=== PATIENT | female | born 1970 | race Caucasian/White ===

== ENCOUNTER → 2016-08-10 | Outpatient (CLI) | payer BC ==
[2016-08-10 14:27] LABS: ASPARTATE AMINO TRANSFERASE 47 IU/L (8-39); BILIRUBIN,TOTAL 0.7 mg/dL (0.3-1.2); BLOOD UREA NITROGEN 14 mg/dL (7-22); CALCIUM 8.4 mg/dL (8.7-10.7); CHLORIDE 101 meq/L (98-112); CREATININE 0.7 mg/dL (0.50-1.20); EST GLOMERULAR FILTRATION > 60 (>60 ml/min/1.73m(2)); GLUCOSE 176 mg/dL (78-110); HDL CHOLESTEROL 54 mg/dL (40-150); POTASSIUM 4.1 meq/L (3.8-5.2); SODIUM 135 meq/L (135-145); TRIGLYCERIDES 182 mg/dL (44-200)
[2016-08-10 14:29] LABS: HEMOGLOBIN A1C 7.77 % (4.2-6.0); MEAN BLOOD GLUCOSE (CALC) 172.741 mg/dL
[2016-08-10 14:35] LABS: CREATININE, URINE 176.5 MG/DL (15-500)
== END ==
LOC: LAB 13:44
PROVIDERS: ATTEND Nurse Practitioner Family
DX: E11.9 Type 2 diabetes mellitus without complications (principal); E78.5 Hyperlipidemia, unspecified; I10 Essential (primary) hypertension
CPT/HCPCS: 36415; 80048; 82043; 82247; 82465; 82550; 82977; 83036; 83718; 84075; 84450; 84460; 84478

== ENCOUNTER 2016-08-20 11:42 | Emergency (ER) | payer BC ==
[2016-08-20] MEDS ORDERED: NORMAL SALINE 10 ML SYRINGE FLUSH IVP PRN ×2 (11:51→11:52)
[2016-08-20] MEDS ORDERED: ONDANSETRON 4 MG/2 ML VIAL IVP ONE (11:52)
[2016-08-20] MEDS ORDERED: Sodium Chloride 0.9% 1,000 ML PRIMARY IV ONE (11:53)
[2016-08-20] MEDS ORDERED: ONDANSETRON 4 MG/2 ML VIAL ONE (11:55)
--- NOTE | 2016-08-20 11:57 | PDOC ---
Abdomen/Flank HPI - General Chief Complaint: Abdomen Pain Stated Complaint: Abdominal Pain Date Seen by Provider: 08/20/16 Time Seen by Provider: 11:54 Source: POSITIVE: Patient Nurse's Notes Reviewed & Considered: Yes - History of Present Illness Initial Comments: Patient is a 46-year-old male who presents to the emergency department with abdominal pain and vomiting. Her abdominal pain appears to be intermittent over the last month. Mostly in the right upper quadrant. No exacerbating or relieving factors. Mild to moderate overall severity and achy in nature. The patient reports that today she's been vomiting. She has had difficulty in tolerating oral intake. patient has had small amount of diarrhea as well. - Patient Home Medications Home Medications: Home Medications Multivitamins with Iron [Chewable-Eric with Iron] 1 each PO QD tab 12/14/14 Docusate Sodium [Colace] 100 mg PO BID PRN #60 cap 11/27/15 Ibuprofen [Motrin] 800 mg PO Q8H PRN #30 tab 11/27/15 Triamcinolone Acetonide 1 applic TOPICAL BID PRN #30 gm 12/12/15 Estrogens, Conj Vaginal Cream [Premarin Vaginal Cream] 0.5 gm TOPICAL DAILY #1 tube 01/07/16 Estrogens,Conjugated [Premarin] 0.9 mg PO DAILY #30 tab 01/07/16 Calcium Carbonate/Vitamin D3 [Calcium 500-Vit D3 400 Tablet] 1 tab PO BID tab 08/11/16 Dapagliflozin Propanediol [Farxiga] 1 tab PO QD #30 tab 08/11/16 Fluoxetine HCl 1 tab PO QD #30 tab 08/11/16 Lisinopril 1 tab PO QD #30 tab 08/11/16 Magnesium 1 tab PO QD tab 08/11/16 Pantoprazole Sodium 1 tab PO DAILY #30 tab 08/11/16 Potassium 1 tab PO QD tab 08/11/16 Sitagliptin Phosphate [Januvia] 1 tab PO DAILY #30 tab 08/11/16 Ondansetron [Ondansetron Odt] 4 mg PO Q8H PRN PRN #12 tab.rapdis 08/20/16 - Patient Allergies Allergies/Adverse Reactions: Allergies Allergy/AdvReac Type Severity Reaction Status Date / Time oxycodone HCl [From Percocet] Allergy Severe SHORTNESS Verified 08/20/16 12:11 OF BREATH codeine Allergy HALLUCINATI Verified 08/20/16 12:11 ONS venom-honey bee Allergy Anaphylaxis Verified 08/20/16 12:11 [bee venom (honey bee)] Past Medical History - heen HEENT History: Denies History Additional HEENT History: TONSILLECTOMY Cardiovascular History: Hypertension Additional Cardiovasular History: NORMAL ECHO AND STRESS TEST Respiratory History: Denies History Gastrointestinal History: GERD, Gallbladder Disease, Hiatal Hernia Genitourinary History: Kidney Stones Additional Genitourinary History: BEEN 20 YEARS AGO Endocrine History: Type 2 Diabetes (diet) Musculoskeletal History: Denies History Prosthesis or Implant: No Neurological History: Denies History Blood Disorders: Denies History Psychiatric History: Denies History History of Sexually Transmitted Diseases: No Cancer History: Denies History History of MDRO: No History of Other Communicable Diseases: No Alcohol Use: Rarely Substance Use Type: None Previous Surgical History: Yes Type / Date of Surgery: EGD/ LITHOTRIPSY, ALSO STENTS, ETC/ LEFT ANKLE MANIPULATION/ TONSILLECTOMY/ TUBAL /SEAN Anesthesia Reactions: No (PONV) Malignant Hyperthermia: No Significant Family History: No pertinent family hx ROS - Limitations ROS Limitations: No Limitations Constitution: REPORTS: Denies Symptoms Cardiovascular: REPORTS: Denies Cardiac Symptoms Respiratory: REPORTS: Denies Resp Symptoms Neurological: REPORTS: Denies Neuro Symptoms Gastrointestinal: REPORTS: Abdominal Pain, Nausea, Vomitting, Diarrhea Endocrine: REPORTS: Denies Symptoms Musculoskeletal: REPORTS: Denies MS Symptoms Genitourinary: REPORTS: Denies Symptoms Eyes: REPORTS: Denies Symptoms ENT: REPORTS: Denies Symptoms Skin: REPORTS: Denies Skin Symptoms Lympathic: REPORTS: Denies Lympathic Symptoms Immunologic: POSITIVE: Denies Symptoms Psychiatric: POSITIVE: Denies Psych Symptoms Abdominal/Flank Pain PE - General Appearance General Appearance: POSITIVE: Alert, Cooperative, Other (Vomiting) - HEENT HEENT: POSITIVE: Head Inspection Nml, Other (Slightly dry mucous membranes) - Neck Neck: POSITIVE: Normal Inspection - Respiratory Respiratory: POSITIVE: No Respiratory Distress - Cardiovascular Cardiovascular: POSITIVE: Regular Rate and Rhythm, Heart Sounds Normal, Equal Pulses - Chest Chest: POSITIVE: Non Tender - Abdomen Additional Abdominal Details: Minimal tenderness in the right upper quadrant. No rebound or guarding. Normal bowel sounds. - Back Back: POSITIVE: Normal Inspection - Skin Skin: POSITIVE: Intact, Warm, Diaphoresis - Extremities Extremity: Non-Tender: (LLE), (RLE), Normal ROM: (RLE), (LLE), Normal Inspection : (LLE), (RLE) - Neurological Neurological: POSITIVE: Oriented X3 Abdomen Progress - Results Reviewed by me Lab Results:: Laboratory Results 08/20/16 Range/Units 12:09 WBC 15.15 H (4.8-10.8) 10^3/uL RBC 5.23 (4.20-5.40) 10^6/uL Hgb 14.0 (12.0-16.0) g/dL Hct 42.4 (37.0-47.0) % MCV 81.1 (81-99) FL MCH 26.8 L (27-31) PG MCHC 33.0 (33-37) g/dL RDW Std Deviation 43.0 (39-50) fL RDW Coeff of Harsha 14.7 H (11.5-14.5) % Plt Count 304 (140-350) 10*3/uL MPV 10.2 (7.4-12.2) FL Immature Gran % (Auto) 0.2 (0-5) % Neut % (Auto) 80.6 H (50-80) % Lymph % (Auto) 11.2 (10-50) % Tama % (Auto) 6.1 (5-15) % Eos % (Auto) 1.6 (0-8) % Baso % (Auto) 0.3 (0-1) % Immature Gran # (Auto) 0.03 10*3/UL Neut # (Auto) 12.21 10*3/UL Lymph # (Auto) 1.70 10*3/uL Tama # (Auto) 0.92 H (0.3-0.8) 10*3/UL Eos # (Auto) 0.24 10*3/UL Baso # (Auto) 0.05 10*3/UL WBC Morphology Comment Normal morphology (NORM) Plt Morphology Comment Normal morphology (NORM) RBC Morph Comment Normal morphology (NORM) Sodium 139 (135-145) meq/L Potassium 4.1 (3.8-5.2) meq/L Chloride 102 (98-112) meq/L Carbon Dioxide 21 L (23-33) meq/L Anion Gap 16 (5-20) BUN 12 (7-22) mg/dL Creatinine 0.8 (0.50-1.20) mg/dL Estimated GFR > 60 (>60 ml/min/1.73m(2)) BUN/Creatinine Ratio 15.00 (6-20) Glucose 203 H (78-110) mg/dL Calculated Osmolality 293.0 H (267-292) mOsm/kg Calcium 9.6 (8.7-10.7) mg/dL Total Bilirubin 0.8 (0.3-1.2) mg/dL AST 59 H (8-39) IU/L ALT 50 (9-52) IU/L Alkaline Phosphatase 111 (38-126) IU/L Total Protein 7.9 (6.1-8.0) g/dL Albumin 4.6 (3.5-4.8) g/dL Globulin 3.3 (2.50-4.10) g/dL Albumin/Globulin Ratio 1.30 (1.3-2.0) mg/g Lipase 112 (23-300) IU/L - Patient's Progress Re-examine Time: 12:35 Re-Examine Comment: Feeling better after zofran Status: POSITIVE: Improved MDM / ED Course: Caity is a 46-year-old female who presents to the emergency department with abdominal pain, nausea, vomiting, diarrhea. Vital signs are notable for slight tachycardia. Examination demonstrates overall well appearing female with reassuring abdominal pain and his vomiting. Differential diagnosis includes but is not limited to gastroenteritis, electrolyte abnormality, biliary disease , pancreatitis, hepatitis. Laboratory studies did note a leukocytosis. No significant left shift and there was a neutrophil predominance. Lipase was negative making pancreatitis less likely. Patient is status post cholecystectomy so there is no indication for a biliary ultrasound. Chemistry panel with very mild elevation in liver enzymes though not consistent with an acute hepatitis pattern. Given the patient's improvement with normal saline bolus and Zofran suspect this is most likely a gastroenteritis recommended continued Zofran at home, oral fluids, follow-up with primary care provider and return to the emergency department for any worsening symptoms or decompensation. Patient Care Time - Estimated PCT Patient Care Time (In Minutes): 45 Vital Signs - Recent Vital Signs Vital Signs: Vital Signs (Last 8 hours) Temp Pulse Resp BP Pulse Ox 08/20/16 11:43 96.9 F 131 H 20 156/110 91 - VS Reviewed Vital Signs Reviewed: Yes Discharge Clinical Impression: Nausea vomiting and diarrhea Discharge Disposition: Discharged to Home Condition: Good Prescriptions / Orders: Ondansetron [Ondansetron Odt] 4 mg PO Q8H PRN PRN #12 tab.rapdis PRN Reason: Nausea Patient Instructions Given at Discharge: Acute Nausea and Vomiting (ED) Additional Instructions: Thank you for coming to the emergency department. It appears that you likely have a virus that is causing nausea, vomiting, and diarrhea. Please make sure that you drink plenty of fluids. Please use nausea medication as needed. This usually lass 24-72 hours. If getting worse please return to the emergency department. Please recheck with your primary care provider in 72 hours. Follow Up With: MAYANK MELISSA [Primary Care Provider] -
[2016-08-20 12:10] VITALS: TEMP 96.9
[2016-08-20 12:11] LABS: BASOPHILS # (AUTO) 0.05 10*3/UL; BASOPHILS % (AUTO) 0.3 % (0-1); EOSINOPHILS % (AUTO) 1.6 % (0-8); HEMATOCRIT 42.4 % (37.0-47.0); IMM GRAN % (AUTO) 0.2 % (0-5); IMM GRAN# (AUTO) 0.03 10*3/UL; LYMPHOCYTES % (AUTO) 11.2 % (10-50); MEAN CORPUSCULAR HEMOGLOBIN 26.8 PG (27-31); MEAN PLATELET VOLUME 10.2 FL (7.4-12.2); MONOCYTES # (AUTO) 0.92 10*3/UL (0.3-0.8); MONOCYTES % (AUTO) 6.1 % (5-15); NEUTROPHILS # (AUTO) 12.21 10*3/UL; NEUTROPHILS % (AUTO) 80.6 % (50-80); RDW COEFFICIENT OF VARIATION 14.7 % (11.5-14.5); RED BLOOD COUNT 5.23 10^6/uL (4.20-5.40); WHITE BLOOD COUNT 15.15 10^3/uL (4.8-10.8)
[2016-08-20 12:12] LABS: PLATELET MORPHOLOGY COMMENT NORMAL MORPHOLOGY (NORM)
[2016-08-20 12:21] LABS: ASPARTATE AMINO TRANSFERASE 59 IU/L (8-39); BILIRUBIN,TOTAL 0.8 mg/dL (0.3-1.2); BLOOD UREA NITROGEN 12 mg/dL (7-22); CALCIUM 9.6 mg/dL (8.7-10.7); CHLORIDE 102 meq/L (98-112); CREATININE 0.8 mg/dL (0.50-1.20); EST GLOMERULAR FILTRATION > 60 (>60 ml/min/1.73m(2)); GLUCOSE 203 mg/dL (78-110); POTASSIUM 4.1 meq/L (3.8-5.2); SODIUM 139 meq/L (135-145); TOTAL PROTEIN 7.9 g/dL (6.1-8.0)
[2016-08-20 13:58] VITALS: RESP 18
[2016-08-20] MEDS ORDERED: Sodium Chloride 0.9% 1,000 ML ONE (18:22)
== END 2016-08-20 13:20 | disposition home or self-care (01) ==
LOC: ER 11:42
DX: R11.2 Nausea with vomiting, unspecified (principal); R19.7 Diarrhea, unspecified; R10.11 Right upper quadrant pain; E11.9 Type 2 diabetes mellitus without complications
CPT/HCPCS: 80053; 83690; 85025; 96361; 96374; 99283; J2405; J7030

== ENCOUNTER → 2016-11-12 | Outpatient (CLI) | payer BC ==
[2016-11-12 16:55] LABS: HEMOGLOBIN A1C 7.61 % (4.2-6.0)
[2016-11-12 17:36] LABS: BLOOD UREA NITROGEN 9 mg/dL (7-22); CALCIUM 8.5 mg/dL (8.7-10.7); CHOL/HDL RATIO 3.93 RATIO (0-4.0); EST GLOMERULAR FILTRATION > 60 (>60 ml/min/1.73m(2)); GAMMA GLUTAMYL TRANSPEPTIDASE 189 IU/L (8-78); HDL CHOLESTEROL 48 mg/dL (40-150); SERUM CHOLESTEROL 189 mg/dL (120-200)
== END ==
LOC: LAB 16:27
PROVIDERS: ATTEND Nurse Practitioner Family
DX: E11.9 Type 2 diabetes mellitus without complications (principal); I10 Essential (primary) hypertension; E78.5 Hyperlipidemia, unspecified
CPT/HCPCS: 36415; 80048; 82247; 82465; 82550; 82977; 83036; 83718; 84075; 84450; 84460; 84478

== ENCOUNTER 2017-01-04 00:40 | Emergency (ER) | payer BC ==
--- NOTE | 2017-01-04 00:50 | PDOC ---
General Adult HPI - General Chief Complaint: General Medical Stated Complaint: SCIATIC NERVE PAIN Date Seen by Provider: 01/04/17 Time Seen by Provider: 00:49 Source: POSITIVE: Patient Exam Limitations: POSITIVE: No limitations Nurse's Notes Reviewed & Considered: Yes - History of Present Illness Initial Comment: Patient presents to the emergency department with complaints of lower back pain. 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 She has a history of lower back pain. She has this had this problem a couple of months ago. She was prescribed Medrol Dosepak [place] and gabapentin and this helped at that time. He is here requesting more pain medication for her back pain today and possibly more steroid. Patient has a history of diabetes. She has a history of a hysterectomy. The patient states the pain is in her left lower back. It radiates down her left leg. It radiates down the posterior aspect of the upper leg and the lateral aspect of the lower leg. She rates the pain a 9 out of 10. She states is worse with walking or lying flat. It seems to be better when she stands. She did take a warm bath and some Tylenol and this did help some. She doesn't take ibuprofen because she has a previous history of ulcers. Patient states the steroids gabapentin's and pain medications helped about a month to 6 weeks ago. She denies any numbness at this time. She denies any saddle anesthesia. She denies incontinence. She denies IV drug use. She denies foot drop. She denies fevers. She denies trauma or injury to her back. She denies any other complaints at this time. She denies dysuria or hematuria or urgency or frequency. Have you received a tetanus shot in the past 10 years?: Unknown Similar Symptoms Previously: Yes (received prescriptions for gabapentin, [place], Medrol Dosepak. It helped.) Recent Care Received: REPORTS: Treated by MD Any Prior Injuries Related to Current Complaint?: Yes (happened 1-2 months ago.) - Patient Home Medications Home Medications: Home Medications Estrogens,Conjugated [Premarin] 0.9 mg PO DAILY #30 tab 01/07/16 Fluoxetine HCl 1 tab PO QD #30 tab 11/13/16 Lisinopril 1 tab PO BID #60 tab 11/13/16 Gabapentin [Neurontin] 300 mg PO TID #30 cap 11/14/16 Hydrocodone/Acetaminophen [Hydrocodon-Acetaminophen 5-325] 1 tab PO Q6H #20 tab 11/14/16 Methylprednisolone [Medrol] 4 mg PO DAILY #1 packet 11/14/16 Fluconazole [Diflucan] 1 tab PO ONCE #1 tab 11/23/16 Sitagliptin Phosphate [Januvia] 1 tab PO DAILY tab 12/01/16 Cyclobenzaprine HCl [Flexeril] 10 mg PO TID PRN #20 tab 01/04/17 predniSONE Tab [Deltasone Tab] 20 mg PO DAILY #5 tab 01/04/17 - Patient Allergies Allergies/Adverse Reactions: Allergies Allergy/AdvReac Type Severity Reaction Status Date / Time oxycodone HCl [From Percocet] Allergy Severe SHORTNESS Verified 01/04/17 01:05 OF BREATH codeine Allergy HALLUCINATI Verified 01/04/17 01:05 ONS venom-honey bee Allergy Anaphylaxis Verified 01/04/17 01:05 [bee venom (honey bee)] Past Medical History - heen HEENT History: Denies History Additional HEENT History: TONSILLECTOMY Cardiovascular History: Hypertension Additional Cardiovasular History: NORMAL ECHO AND STRESS TEST Respiratory History: Denies History Gastrointestinal History: GERD, Gallbladder Disease, Hiatal Hernia Genitourinary History: Kidney Stones Additional Genitourinary History: BEEN 20 YEARS AGO Endocrine History: Type 2 Diabetes (diet) Musculoskeletal History: Denies History Prosthesis or Implant: No Neurological History: Denies History Blood Disorders: Denies History Psychiatric History: Denies History History of Sexually Transmitted Diseases: No Cancer History: Denies History History of MDRO: No History of Other Communicable Diseases: No Alcohol Use: Rarely Substance Use Type: None Previous Surgical History: Yes Type / Date of Surgery: EGD/ LITHOTRIPSY, ALSO STENTS, ETC/ LEFT ANKLE MANIPULATION/ TONSILLECTOMY/ TUBAL /SEAN Anesthesia Reactions: No (PONV) Malignant Hyperthermia: No Significant Family History: No pertinent family hx ROS - Limitations ROS Limitations: No Limitations Constitution: REPORTS: Denies Symptoms Cardiovascular: REPORTS: Denies Cardiac Symptoms Respiratory: REPORTS: Denies Resp Symptoms Neurological: REPORTS: Difficulty Walking (Secondary to pain.). DENIES: Confusion, Headache, Dizziness, Numbness Gastrointestinal: REPORTS: Denies GI Symptoms Endocrine: REPORTS: Denies Symptoms Musculoskeletal: REPORTS: Back Pain (Radiation of pain into left leg.) Genitourinary: REPORTS: Denies Symptoms ENT: REPORTS: Denies Symptoms Skin: REPORTS: Denies Skin Symptoms Lympathic: REPORTS: Denies Lympathic Symptoms Immunologic: POSITIVE: Denies Symptoms Psychiatric: POSITIVE: Denies Psych Symptoms General Adult Exam - General Appearance General Appearance: POSITIVE: Alert, Cooperative, No Evidence of Trauma, Moderate Distress - HEENT HEENT: POSITIVE: Head Inspection Nml, Eyes Inspection Nml, Ears Inspection Nml, Nose Inspection Nml, Pharynx Inspect. Nml - Pupils Pupil Size: 4 mm: Bilateral - Neck Neck: POSITIVE: Normal Inspection. NEGATIVE: Stiff Neck - Respiratory Respiratory: POSITIVE: No Respiratory Distress, Breath Sounds Normal - Cardiovascular Cardiovascular: POSITIVE: Regular Rate & Rhythm, No Murmur Peripheral Pulses: Radial (R): 2+, Radial (L): 2+, Dorsalis-pedis (R): 2+, Dorsalis-pedis (L): 2+ - Abdomen Abdomen: Soft: (All Quadrants), Normal Bowel Sounds: (All Quadrants), Denies Tenderness: (All Quadrants) - Back Back: POSITIVE: Lumbosacral Tenderness (No focal lumbar spinous tenderness nor step-offs. Positive lumbar paraspinous muscle tenderness especially on the left. None on the right. No thoracic paraspinous tenderness). NEGATIVE: CVA Tenderness, Thoracic Tenderness - Skin Skin: POSITIVE: Normal Color, Warm, Dry, No Rash - Extremities Extremity: Non-Tender: (All Extremities), Normal ROM: (All Extremities), Normal Inspection: (All Extremities) Additional Extremities Details: Patient has slightly decreased strength of left lower extremity in extension compared to right lower extremity. I believe this is secondary to pain. - Neurological / Psychological Neurological: POSITIVE: Affect Apporpriate, Oriented X3, engine wiper Normal As Tested, Motor Normal, Sensation Normal Reflexes: Achilles (R): 2+, Achilles (L): 2+, Patellar (R): 2+, Patellar (L): 2+ General Adult Progress - Patient's Progress Pain Medication Addressed: POSITIVE: Yes Status: POSITIVE: Improved MDM / ED Course: Patient was informed that I feel she has a strain of her lumbar paraspinous musculature. I also feel she has some radicular pain. I recommended the patient that we start her on muscle relaxant, oral steroid and Tylenol. Prescriptions for these medications were given. I recommended she apply heat to the affected area for 20 minutes every 2-3 hours as needed being careful not to burn herself. I recommended she follow up with her primary care provider in the next 1-2 weeks for possible referral to physical therapy. I explained to the patient that I do not feel narcotic pain medication is appropriate for chronic use with back pain as a studies have shown that it decreases quality of life. I did recommend to the patient that we treat her pain here in the emergency department and offered 3 IM injections. These were IM Toradol, IM Norflex and I am morphine. She does have a ride home and she would like these injections for her pain today. Patient to receive these injections and it did help her pain. She also received first dose of steroid by mouth this evening and tolerated this well. I encouraged her to have close follow-up with her primary care provider and return to the emergency room for any worsening of her condition. Offered note for work and she declined. She expresses understanding of all instructions and was discharged home in stable and improved condition. Patient Care Time - Estimated PCT Patient Care Time (In Minutes): 11 Discharge Clinical Impression: Strain of lumbar paraspinous muscle, Lumbar back pain with radiculopathy affecting left lower extremity Discharge Disposition: Discharged to Home Condition: Good Prescriptions / Orders: predniSONE Tab [Deltasone Tab] 20 mg PO DAILY #5 tab Cyclobenzaprine HCl [Flexeril] 10 mg PO TID PRN #20 tab PRN Reason: Back Pain Patient Instructions Given at Discharge: Lumbar Radiculopathy (ED) Print Language: EGYPTIAN Additional Instructions: Take Flexeril 3 times a day as needed for pain and muscle spasm. Apply heat to the affected area for 20 minutes every 2-3 hours as needed for pain. Do not drive while taking Flexeril. Be careful not to burn herself while using the heat. Take Tylenol 500 mg every 6 hours as needed for pain. Do not take other medications with Tylenol in it while taking your Tylenol for back pain. Take steroids until gone. Follow-up with your primary care provider in one to 2 weeks. You may require physical therapy. Return to the emergency department for any worsening of your condition or further concerns. Follow Up With: MAYANK MELISSA [Primary Care Provider] -
[2017-01-04] MEDS ORDERED: MORPHINE SULFATE 4 MG/1 ML IM ONE (01:02)
[2017-01-04] MEDS ORDERED: KETOROLAC 60 MG/2 ML VIAL IM ONE ×2 (01:02)
[2017-01-04] MEDS ORDERED: predniSONE Tab 20 MG TAB PO ONE (01:15)
[2017-01-04 04:10] VITALS: RESP 18; TEMP 97.1
== END 2017-01-04 01:40 | disposition home or self-care (01) ==
LOC: ER 00:40
DX: S39.012A Strain of muscle, fascia and tendon of lower back, initial encounter (principal); M54.16 Radiculopathy, lumbar region; I10 Essential (primary) hypertension; E11.9 Type 2 diabetes mellitus without complications; X50.3XXA Overexertion from repetitive movements, initial encounter
CPT/HCPCS: 96372; 99282 ×2; J1885; J2360; J7512; J2270

== ENCOUNTER → 2017-02-02 | Outpatient (CLI) | payer BC ==
[2017-02-02 08:59] LABS: BLOOD UREA NITROGEN 10 mg/dL (7-22); BUN/CREATININE RATIO 16.66 (6-20); CALCIUM 8.9 mg/dL (8.7-10.7); CHOL/HDL RATIO 4.05 RATIO (0-4.0); EST GLOMERULAR FILTRATION > 60 (>60 ml/min/1.73m(2)); GAMMA GLUTAMYL TRANSPEPTIDASE 383 IU/L (8-78); HDL CHOLESTEROL 55 mg/dL (40-150); SERUM CHOLESTEROL 223 mg/dL (120-200)
[2017-02-02 09:14] LABS: HEMOGLOBIN A1C 9.35 % (4.2-6.0)
== END ==
LOC: LAB 08:06
PROVIDERS: ATTEND Nurse Practitioner Family
DX: E11.65 Type 2 diabetes mellitus with hyperglycemia (principal); I10 Essential (primary) hypertension; E78.5 Hyperlipidemia, unspecified; R74.8 Abnormal levels of other serum enzymes; K21.9 Gastro-esophageal reflux disease without esophagitis
CPT/HCPCS: 36415; 80048; 82247; 82465; 82550; 82977; 83036; 83718; 84075; 84450; 84460; 84478

== ENCOUNTER → 2017-02-04 | Outpatient (CLI) | payer BC ==
--- NOTE | 2017-02-04 14:39 | DI ---
CT ABDOMEN/PELVIS W/O CONTRAST,02/04/2017 1:58 PM: Clinical History: Right upper quadrant abdominal pain. Previous Exam: None at this facility. Findings: Multiple helically acquired CT images are obtained through the abdomen and pelvis without contrast, a nd demonstrate a normal appendix. There is no free fluid within the deep pelvis. The urinary bladder is unremarkable. Skeletal structures are unremarkable. The liver, spleen, pancreas and adrenals are unremarkable. Patient is status post cholecystectomy. There is no mesenteric or retroperitoneal lymphadenopathy. The lung bases are clear. Skeletal structures are unremarkable. Impression: No acute intra-abdominal pathology.
== END ==
LOC: CT 13:52
PROVIDERS: ATTEND Nurse Practitioner Family
DX: R10.11 Right upper quadrant pain (principal); R74.8 Abnormal levels of other serum enzymes
CPT/HCPCS: 74176

== ENCOUNTER 2018-10-19 04:53 | Observation (INO) ==
[2018-10-19] MEDS ORDERED: ASPIRIN 81 MG (BABY) CHEWABLE TABLET PO ONE (05:05)
--- NOTE | 2018-10-19 05:05 | PDOC ---
Chest Pain HPI - General Chief Complaint: Chest Pain Stated Complaint: CHEST AND BACK PAIN Date Seen by Provider: 10/19/18 Time Seen by Provider: 04:58 Source: Patient Exam Limitations: POSITIVE: No limitations Treatment Prior to Arrival: REPORTS: None Nurse's Notes Reviewed & Considered: Yes - History of Present Illness Initial Comments: This is a well-developed, well-nourished, 48-year-old female, complaining of chest pain. Patient with sudden onset of chest pain that she describes as pressure and burning with radiation to her back and left side that began tonight around 0300 hrs. she initially took some ibuprofen because her symptoms began as back pain. Patient was at work this morning. She works at the [employer]. She had similar episode of back pain with radiation into her left arm on Wednesday. She does have some shortness of breath when she is having pain but none presently. She denies any pain at this time. She denies any headache, no sore throat, no nausea vomiting or diarrhea, no hematuria or dysuria, no rashes. Body Location Affected: REPORTS: Chest, Back Timing: REPORTS: Abrupt Duration: 1-3 hours Severity: Moderate Context: REPORTS: Activity Quality: REPORTS: Burning, "Pain", Stabbing, Pressure Radiation: REPORTS: Back Associated Symptoms: REPORTS: Shortness of Breath Modifying Factors: improves with: None Reported Similar Symptoms Previously: Yes Recently seen/treated/hospitalized: No Any Prior Injuries Related to Current Complaint?: No - Patient Home Medications Home Medications: Home Medications potassium 99 mg tablet 99 mg PO QDAY tab 05/05/17 pantoprazole 40 mg tablet,delayed release 40 mg PO QDAY #90 tab 06/14/18 Lantus Solostar U-100 Insulin 100 unit/mL (3 mL) subcutaneous pen 42 unit SUBCUT QAM #3 ml NS 10/12/18 estradiol 1 mg tablet 1 mg PO QDAY #30 tab 10/12/18 fluoxetine 20 mg capsule 20 mg PO DAILY #30 cap 10/12/18 gabapentin 300 mg capsule 300 mg PO QHS #30 cap 10/12/18 lisinopril 40 mg tablet 40 mg PO BID #60 tab 10/12/18 Blood-Glucose Meter [Contour Next Ez] 0 unit .ROUTE .MEDSUPPLY 10/19/18 - Patient Allergies Allergies/Adverse Reactions: Allergies Allergy/AdvReac Type Severity Reaction Status Date / Time oxycodone HCl [From Percocet] Allergy Severe SHORTNESS Verified 10/19/18 04:55 OF BREATH codeine Allergy HALLUCINATI Verified 10/19/18 04:55 ONS venom-honey bee Allergy Anaphylaxis Verified 10/19/18 04:55 [bee venom (honey bee)] Past Medical History - heen HEENT History: Denies History Additional HEENT History: TONSILLECTOMY Cardiovascular History: Hypertension, Hyperlipidemia Additional Cardiovasular History: NORMAL ECHO AND STRESS TEST Respiratory History: Denies History Gastrointestinal History: GERD, Gallbladder Disease, Hiatal Hernia Genitourinary History: Kidney Stones Additional Genitourinary History: 2011 Endocrine History: Type 2 Diabetes (diet), Type 2 Diabetes (insulin) Musculoskeletal History: Denies History Prosthesis or Implant: No Neurological History: Denies History Blood Disorders: Denies History Psychiatric History: Denies History History of Sexually Transmitted Diseases: No Cancer History: Denies History History of MDRO: No History of Other Communicable Diseases: No Alcohol Use: Rarely In the Past 12 Months, Have Used or Abuse Any Substance: None Previous Surgical History: Yes Type / Date of Surgery: EGD/ LITHOTRIPSY, ALSO STENTS, ETC/ LEFT ANKLE MANIPULATION/ TONSILLECTOMY/ TUBAL /SEAN/HYSTERECTOMY WITH BSO Anesthesia Reactions: No (PONV) Malignant Hyperthermia: No Significant Family History: No pertinent family hx ROS - Limitations ROS Limitations: No Limitations Constitution: REPORTS: Denies Symptoms Cardiovascular: REPORTS: Chest Pain Respiratory: REPORTS: Shortness Of Breath Neurological: REPORTS: Denies Neuro Symptoms Gastrointestinal: REPORTS: Denies GI Symptoms Endocrine: REPORTS: Denies Symptoms Musculoskeletal: REPORTS: Back Pain Genitourinary: REPORTS: Denies Symptoms Eyes: REPORTS: Denies Symptoms ENT: REPORTS: Denies Symptoms Skin: REPORTS: Denies Skin Symptoms Lympathic: REPORTS: Denies Lympathic Symptoms Immunologic: POSITIVE: Denies Symptoms Psychiatric: POSITIVE: Denies Psych Symptoms Chest Pain PE - General Appearance General Appearance: REPORTS: Alert, Cooperative, No Evidence of Trauma, Mild Distress - HEENT HEENT: POSITIVE: Head Inspection Nml, Eyes Inspection Nml, Ears Inspection Nml, Nose Inspection Nml, Oral/Dental Inspect. Nml, Pharynx Inspect. Nml, PERRL, EOMI - Neck Neck: REPORTS: Normal Inspection - Respiratory Respiratory: REPORTS: No Respiratory Distress, Breath Sounds Normal, Chest Non- Tender - Cardiovascular Cardiovascular: REPORTS: Regular Rate and Rhythm, Heart Sounds Normal, Equal Pulses, Strong Pulses, No Murmur, No Gallop, No Friction Rub, No JVD Peripheral Pulses: Radial (L): 4+ - Abdomen Abdomen: Soft: (All Quadrants), Normal Bowel Sounds: (All Quadrants), Denies Tenderness: (All Quadrants), No Splenomegaly: (All Quadrants), No Hepatomegaly: (All Quadrants), No Guarding: (All Quadrants), No Rebound: (All Quadrants), No Palpable Pulse: (All Quadrants), No Palpabale Mass: (All Quadrants), No Distention: (All Quadrants), No Rigidity: (All Quadrants) - Skin Skin: REPORTS: Intact, Normal For Race, Warm, Dry, No Rash - Extremities Extremity: Non-Tender: (All Extremities), Normal ROM: (All Extremities), Normal Inspection: (All Extremities), Pelvis Stable: (All Extremities) - Neurological / Psychological Neurological: POSITIVE: Affect Apporpriate, Oriented X3, Motor Normal, Sensation Normal Chest Pain Progress - Results Reviewed by me Xrays/CTs/US Reviewed by me: Yes Discussed with Radiologist: No Lab Results Reviewed by Me: Yes CBC and BMP: 10/19/18 05:01 10/19/18 05:01 Lab Results:: Laboratory Results 10/19/18 10/19/18 10/19/18 05:01 05:01 05:01 WBC 6.21 RBC 4.60 Hgb 14.8 Hct 41.1 MCV 89.3 MCH 32.2 H MCHC 36.0 RDW Std Deviation 40.1 RDW Coeff of Harsha 12.5 Plt Count 192 MPV 10.5 Immature Gran % (Auto) 0.2 Neut % (Auto) 57.1 Lymph % (Auto) 33.2 [place] % (Auto) 6.6 Eos % (Auto) 2.3 Baso % (Auto) 0.6 Immature Gran # (Auto) 0.01 Neut # (Auto) 3.55 Lymph # (Auto) 2.06 [place] # (Auto) 0.41 Eos # (Auto) 0.14 Baso # (Auto) 0.04 WBC Morphology Comment Normal morphology Plt Morphology Comment Normal morphology RBC Morph Comment Normal morphology PT 10.1 INR 0.99 D-Dimer 0.40 Sodium 138 Potassium 3.4 L Chloride 103 Carbon Dioxide 26 Anion Gap 9 BUN 12 Creatinine 0.6 Estimated GFR > 60 BUN/Creatinine Ratio 20.00 Glucose 242 H Calculated Osmolality 293.0 H Calcium 8.9 Magnesium 1.5 L Total Bilirubin 0.6 AST 75 H ALT 34 Alkaline Phosphatase 116 CK-MB (CK-2) Troponin I Handheld C-Reactive Protein 1.4 H NT-Pro-B Natriuret Pep 25.2 Total Protein 7.1 Albumin 4.0 Globulin 3.0 Albumin/Globulin Ratio 1.30 10/19/18 10/19/18 05:01 05:01 WBC RBC Hgb Hct MCV MCH MCHC RDW Std Deviation RDW Coeff of Harsha Plt Count MPV Immature Gran % (Auto) Neut % (Auto) Lymph % (Auto) [place] % (Auto) Eos % (Auto) Baso % (Auto) Immature Gran # (Auto) Neut # (Auto) Lymph # (Auto) [place] # (Auto) Eos # (Auto) Baso # (Auto) WBC Morphology Comment Plt Morphology Comment RBC Morph Comment PT INR D-Dimer Sodium Potassium Chloride Carbon Dioxide Anion Gap BUN Creatinine Estimated GFR BUN/Creatinine Ratio Glucose Calculated Osmolality Calcium Magnesium Total Bilirubin AST ALT Alkaline Phosphatase CK-MB (CK-2) 0.46 Troponin I Handheld 0.000 C-Reactive Protein NT-Pro-B Natriuret Pep Total Protein Albumin Globulin Albumin/Globulin Ratio EKG Interpreted/Reviewed By Me:: Yes (sinus rhythm, 77 bpm, no ST changes.) EKG Interpretation:: POSITIVE: Normal Sinus Rhythm, Normal ST/T - Patient's Progress Pain Medication Addressed: POSITIVE: Yes Re-Examine Time: 05:40 Status: POSITIVE: Improved MDM / ED Course: Patient was evaluated, an IV started, blood drawn and sent to the lab for studies, chest x-ray and EKG were obtained. Findings: EKG, per my interpretation, shows sinus rhythm, rate of 76 beats a minute, no ST changes. CBC shows white count hemoglobin and hematocrit and platelets are normal. PT is 10.1 and INR 0.99 with a normal d-dimer is 0.40. CMP shows potassium of 3.4, glucose of 242, AST of 75. Magnesium is 1.5. Troponin is 0.000, CK-MB 0.46. CRP is 1.4. BNP is 25.2. Chest x-ray, per my interpretation, shows no acute cardiopulmonary decompensation. Urinalysis and TSH are pending. Assessment: Chest pain with coronary equivalent see of diabetes mellitus. Plan: Admission for rule out [place]. Quality Measure Initiative: CP/AMI: POSITIVE: EKG Quality Measure Initiative: CAP: POSITIVE: CXR or CT - Consult Consult (If Yes, Name of Consulting MD & Time Called): Yes (Dr. Bellamy 0540 hrs.) Consulting MD will see pt:: POSITIVE: [facility] [place] Counseled: POSITIVE: Patient, Family, RE: Lab Results, RE: Radiology Results, RE: DX Patient Care Time - Estimated PCT Patient Care Time (In Minutes): 40 Vital Signs - Recent Vital Signs Vital Signs: Vital Signs (Last 8 hours) Temp Pulse Resp BP Pulse Ox 10/19/18 05:08 97.6 F 86 20 153/89 96 - VS Reviewed Vital Signs Reviewed: Yes Discharge Clinical Impression: Chest pain, Diabetes mellitus Discharge Disposition: Admit to Observation Condition: Stable Patient Instructions Given at Discharge: Chest Pain (ED) Follow Up With: MAYANK MELISSA [Primary Care Provider] - Date Decision to Admit to Inpatient: 10/19/18 Time Decision to Admit to Inpatient: 05:40
[2018-10-19] MEDS ORDERED: NITROGLYCERIN 0.4 MG SL TAB (BOTTLE OF 3) SL PRN ×2 (05:06→06:07)
[2018-10-19] MEDS ORDERED: Sodium Chloride 0.9% 1,000 ML PRIMARY IV ONE (05:06)
[2018-10-19] MEDS ORDERED: MORPHINE SULFATE 4 MG/1 ML IVP PRN (05:06)
[2018-10-19] MEDS ORDERED: ONDANSETRON 4 MG/2 ML VIAL IVP ONE (05:06)
--- NOTE | 2018-10-19 05:12 | EKG ---
[address] [address] Measurements Intervals [place] Rate: 77 P: 49 NM: 163 QRS: 7 QRSD: 74 T: 46 QT: 396 QTc: 428 Interpretive Statements SINUS RHYTHM INTERPRETATION BASED ON A DEFAULT AGE OF 40 YEARS Compared to ECG 08/04/2016 22:07:13 No significant changes Electronically Signed On 10-19-18 09:07:52 MDT by Kaiden Traylor MD [email or web address]
[2018-10-19 05:16] LABS: BASOPHILS # (AUTO) 0.04 10*3/UL; BASOPHILS % (AUTO) 0.6 % (0-1); EOSINOPHILS # (AUTO) 0.14 10*3/UL; EOSINOPHILS % (AUTO) 2.3 % (0-8); Hematocrit [HCT] 41.1 % (37.0-47.0); Hemoglobin [HGB] 14.8 g/dL (12.0-16.0); LYMPHOCYTES # (AUTO) 2.06 10*3/uL; MEAN CORPUSCULAR HEMOGLOBIN 32.2 PG (27-31); MEAN CORPUSCULAR VOLUME 89.3 FL (81-99); MEAN PLATELET VOLUME 10.5 FL (7.4-12.2); MONOCYTES # (AUTO) 0.41 10*3/UL (0.3-0.8); MONOCYTES % (AUTO) 6.6 % (5-15); NEUTROPHILS # (AUTO) 3.55 10*3/UL; NEUTROPHILS % (AUTO) 57.1 % (50-80)
[2018-10-19 05:20] LABS: PLATELET MORPHOLOGY COMMENT NORMAL MORPHOLOGY (NORM); RBC MORPHOLOGY COMMENT NORMAL MORPHOLOGY (NORM); WBC MORPHOLOGY COMMENT NORMAL MORPHOLOGY (NORM)
[2018-10-19 05:26] LABS: BLOOD UREA NITROGEN 12 mg/dL (7-22)
[2018-10-19] MEDS ORDERED: Magnesium Sulfate 2gm (Premix) 2 GM/50 ML BAG IV ONE (05:31)
[2018-10-19] MEDS ORDERED: INSULIN REGULAR, HUMAN 100 UNIT/1 ML - 3 ML SUBCUT ONE (05:33)
[2018-10-19] MEDS ORDERED: LIDOCAINE W/ SODIUM BICARB 0.5 ML SYR SUBD PRN (06:07)
[2018-10-19] MEDS ORDERED: CALCIUM CARBONATE 500 MG (TUMS) CHEWABLE TABLET PO PRN (06:07)
[2018-10-19] MEDS ORDERED: ONDANSETRON 4 MG/2 ML VIAL IVP PRN (06:07)
[2018-10-19 06:17] LABS: CHOL/HDL RATIO 4.86 RATIO (0-4.0)
[2018-10-19] MEDS ORDERED: MORPHINE SULFATE 2 MG/1 ML IVP PRN (06:56)
--- NOTE | 2018-10-19 07:11 | DI ---
AP CHEST X-RAY, 10/19/2018 5:06 AM : Clinical History: Chest pain. Previous Exam: 04/25/2018. Soft Tissues: No acute soft tissue abnormality. On the AP projection, the patient took a shallow insp iration. Bones: Normal. Heart: Normal heart. Lungs: No infiltrates. Effusion(s): None. Mediastinum: Normal mediastinum. Nodules: No pulmonary nodules. Reading: Normal chest x-ray. There has been no significant interval change.
[2018-10-19] MEDS: PANTOPRAZOLE 40 MG TABLET PO SCH (09:13)
[2018-10-19] MEDS ORDERED: Sodium Chloride 0.9% 100 ML IV ONE ×2 (09:45→14:00)
[2018-10-19] MEDS: FLUoxetine 20 MG CAPSULE PO SCH (10:06)
[2018-10-19] MEDS: LISINOPRIL 20 MG TABLET PO SCH ×2 (10:06→20:21)
[2018-10-19] MEDS: Insulin Glargine SoloStar Inj 100 UNIT/ML INSULN.PEN SUBCUT SCH (10:07)
--- NOTE | 2018-10-19 14:16 | PDOC ---
HPI - History of Present Illness Date of Service: 10/19/18 Time of Service: 09:20 Chief Complaint: Chest pain History of Present Illness: This very pleasant 38-year-old female with diabetes mellitus type II, borderline hypercholesterolemia, hypertension, GERD, and is on estrogen replacement therapy after prior hysterectomy for uterine fibroid disease, who comes in stating that she developed chest pain while at work. 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 She states that it stressful job, but be that as it may, she developed chest pain in her substernal region that seemed to radiate between her shoulder blades and down her left arm. She states it was nonexertional. She's noticed over the past couple of days however that she has had some shortness of breath with activities such as moving the blinds in her house. She's not had anything like this happen before. She states nothing like her heartburn symptoms. Incidentally, she did try anti-inflammatories and does use the NSAIDs intermittently for aches and pains. Anti-inflammatories did not help this pain. She states that she felt nauseous. She did not feel short of breath with this episode of pain. She states nitroglycerin helped the pain imp roved. She does not smoke. She has diabetes, hypertension, but no family history of coronary events. Although she said her cholesterol is borderline, she has hypercholesterolemia on her labs here this morning. Initial troponin was negative. A chest x-ray was negative and an EKG appeared normal sinus rhythm. Past Medical History Medical History: 1. Diabetes mellitus type II, poorly controlled. 2. Hypertension. 3. Hypercholesterolemia with hypertriglyceridemia. 4. GERD. 5. Postsurgical menopause with hormone replacement therapy. 6. Depression Surgical History: 1. FREDY with BSO. 2. Cholecystectomy. 3. EGD with GERD. 4. Tonsillectomy. 5. History of tubal ligation. 6. Kidney stones Pertinent Family History: Patient's mother had atrial fibrillation. Past Social History: Does not smoke. Does not drink alcohol. 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 She has children, 4, all described as healthy. Tobacco Use: Never Smoker In the Past 12 Months, Have Used or Abuse Any of the Following Substance: None Alcohol Use: None Medication / Allergies Home Medications: Home Medications Medication Instructions Recorded Confirmed Type potassium 99 mg tablet 99 mg PO QDAY tab 05/05/17 10/19/18 History pantoprazole 40 mg tablet,delayed 40 mg PO QDAY #90 tab 06/14/18 10/19/18 Rx release Lantus Solostar U-100 Insulin 100 42 unit SUBCUT QAM #3 ml NS 10/12/18 10/19/18 Rx unit/mL (3 mL) subcutaneous pen estradiol 1 mg tablet 1 mg PO QDAY #30 tab 10/12/18 10/19/18 Rx fluoxetine 20 mg capsule 20 mg PO DAILY #30 cap 10/12/18 10/19/18 Rx gabapentin 300 mg capsule 300 mg PO QHS #30 cap 10/12/18 10/19/18 Rx lisinopril 40 mg tablet 40 mg PO BID #60 tab 10/12/18 10/19/18 Rx Blood-Glucose Meter [Contour Next 0 unit .ROUTE .MEDSUPPLY 10/19/18 10/19/18 History Ez] Allergies/Adverse Reactions: Allergies Allergy/AdvReac Type Severity Reaction Status Date / Time oxycodone HCl [From Percocet] Allergy Severe SHORTNESS Verified 10/19/18 06:27 OF BREATH codeine Allergy HALLUCINATI Verified 10/19/18 06:27 ONS venom-honey bee Allergy Anaphylaxis Verified 10/19/18 06:27 [bee venom (honey bee)] Review of Systems - Review of Systems All Systems: Reviewed & No Additional Complaints Except as Stated (I did a 12 point review systems and it was negative other than that discussed below and in the history of present illness.) Exam - Vitals Vital Signs: Vital Signs Temperature 97.2 F Temperature Source Temporal Artery Scan Pulse Rate [Pulse Oximeter] 74 Pulse Rate 87 Respiratory Rate 20 Blood Pressure [Left Arm] 130/72 Blood Pressure 113/64 Pulse Ox 93 Oxygen Delivery Method Room Air Height 5 ft 8 in Weight 228 lb 9.6 oz - General General Appearance: No Acute Distress, Cooperative, Obese - Head Head Exam: Normal Inspection, Normocephalic, Atraumatic - Eye Eye Exam: POSITIVE: No Scleral Icterus - ENT ENT Exam: POSITIVE: Mucous Membranes Moist - Neck Neck Exam: Normal Inspection, No Tenderness, No Lymphadenopathy, No Thyromegaly, JVP is not Raised - Respiratory Respiratory Exam: POSITIVE: Clear to Auscultation - Bilaterally, Breathing Non Labored, Normal to Percussion and Palpation - Cardiovascular Cardiovascular Exam: POSITIVE: RRR, No Murmur, No Clicks, No Gallops, No Rubs, No JVD - GI/Abdominal GI/Abdominal Exam: POSITIVE: Normal Bowel Sounds, Non Tender, Non Distended, Soft - Rectal Rectal Exam: POSITIVE: Deferred - External Exam: POSITIVE: Deferred Exam: POSITIVE: Deferred - Extremities Extremities Exam: POSITIVE: No Clubbing Present, No Edema Present, No Cyanosis Present - Back Back Exam: POSITIVE: No CVA Tenderness - Neurological Neurological Exam: POSITIVE: Alert, Oriented x 3, No Facial Droop, Speech Intact / Clear, Moves All Extremities Equally - Psychiatric Psychiatric Exam: POSITIVE: Anxious Results - Labs CBC and BMP: 10/19/18 05:01 10/19/18 05:01 Additional Lab Results: Laboratory Results 10/19/18 10/19/18 10/19/18 05:01 05:01 05:01 WBC 6.21 RBC 4.60 Hgb 14.8 Hct 41.1 MCV 89.3 MCH 32.2 H MCHC 36.0 RDW Std Deviation 40.1 RDW Coeff of Harsha 12.5 Plt Count 192 MPV 10.5 Immature Gran % (Auto) 0.2 Neut % (Auto) 57.1 Lymph % (Auto) 33.2 [place] % (Auto) 6.6 Eos % (Auto) 2.3 Baso % (Auto) 0.6 Immature Gran # (Auto) 0.01 Neut # (Auto) 3.55 Lymph # (Auto) 2.06 [place] # (Auto) 0.41 Eos # (Auto) 0.14 Baso # (Auto) 0.04 WBC Morphology Comment Normal morphology Plt Morphology Comment Normal morphology RBC Morph Comment Normal morphology PT 10.1 INR 0.99 D-Dimer 0.40 Sodium 138 Potassium 3.4 L Chloride 103 Carbon Dioxide 26 Anion Gap 9 BUN 12 Creatinine 0.6 Estimated GFR > 60 BUN/Creatinine Ratio 20.00 Glucose 242 H Calculated Osmolality 293.0 H Calcium 8.9 Magnesium 1.5 L Total Bilirubin 0.6 AST 75 H ALT 34 Alkaline Phosphatase 116 CK-MB (CK-2) Troponin I Handheld Troponin I C-Reactive Protein 1.4 H NT-Pro-B Natriuret Pep 25.2 Total Protein 7.1 Albumin 4.0 Globulin 3.0 Albumin/Globulin Ratio 1.30 Triglycerides Cholesterol LDL Cholesterol, Calc VLDL Cholesterol HDL Cholesterol Cholesterol/HDL Ratio TSH Free T4 10/19/18 10/19/18 10/19/18 05:01 05:01 05:01 WBC RBC Hgb Hct MCV MCH MCHC RDW Std Deviation RDW Coeff of Harsha Plt Count MPV Immature Gran % (Auto) Neut % (Auto) Lymph % (Auto) [place] % (Auto) Eos % (Auto) Baso % (Auto) Immature Gran # (Auto) Neut # (Auto) Lymph # (Auto) [place] # (Auto) Eos # (Auto) Baso # (Auto) WBC Morphology Comment Plt Morphology Comment RBC Morph Comment PT INR D-Dimer Sodium Potassium Chloride Carbon Dioxide Anion Gap BUN Creatinine Estimated GFR BUN/Creatinine Ratio Glucose Calculated Osmolality Calcium Magnesium Total Bilirubin AST ALT Alkaline Phosphatase CK-MB (CK-2) Cancelled 0.46 Troponin I Handheld 0.000 Troponin I C-Reactive Protein NT-Pro-B Natriuret Pep Total Protein Albumin Globulin Albumin/Globulin Ratio Triglycerides Cholesterol LDL Cholesterol, Calc VLDL Cholesterol HDL Cholesterol Cholesterol/HDL Ratio TSH 5.62 H Free T4 1.01 10/19/18 10/19/18 05:01 12:06 WBC RBC Hgb Hct MCV MCH MCHC RDW Std Deviation RDW Coeff of Harsha Plt Count MPV Immature Gran % (Auto) Neut % (Auto) Lymph % (Auto) [place] % (Auto) Eos % (Auto) Baso % (Auto) Immature Gran # (Auto) Neut # (Auto) Lymph # (Auto) [place] # (Auto) Eos # (Auto) Baso # (Auto) WBC Morphology Comment Plt Morphology Comment RBC Morph Comment PT INR D-Dimer Sodium Potassium Chloride Carbon Dioxide Anion Gap BUN Creatinine Estimated GFR BUN/Creatinine Ratio Glucose Calculated Osmolality Calcium Magnesium Total Bilirubin AST ALT Alkaline Phosphatase CK-MB (CK-2) Troponin I Handheld Troponin I < 0.012 C-Reactive Protein NT-Pro-B Natriuret Pep Total Protein Albumin Globulin Albumin/Globulin Ratio Triglycerides 228 H Cholesterol 219 H LDL Cholesterol, Calc 128.400 VLDL Cholesterol 45 H HDL Cholesterol 45 Cholesterol/HDL Ratio 4.86 H TSH Free T4 - EKG Data -: EKG Interpreted by Me Rate: Normal EKG Shows Normal: Sinus Rhythm - Imaging Status: Image Reviewed by Me (Chest x-ray, on my view appears negative) Assessment and Plan - Patient Problems (1) Chest pain Current Visit: Yes Status: Acute Code(s): R07.9 - Chest pain, unspecified (2) GERD (gastroesophageal reflux disease) Current Visit: Yes Status: Chronic Code(s): K21.9 - Gastro-esophageal reflux disease without esophagitis Qualifiers: Esophagitis presence: without esophagitis Qualified Code(s): K21.9 - Gastro-esophageal reflux disease without esophagitis (3) Diabetes mellitus Current Visit: Yes Status: Chronic Code(s): E11.9 - Type 2 diabetes mellitus without complications Qualifiers: Diabetes mellitus type: type 2 Diabetes mellitus skilled nursing insulin use: with skilled nursing use Diabetes mellitus complication status: with neurologic complications Diabetes mellitus complication detail: with autonomic neuropathy Qualified Code(s): E11.43 - Type 2 diabetes mellitus with diabetic autonomic (poly)neuropathy; Z79.4 - snf (current) use of insulin (4) Hypertension Current Visit: Yes Status: Acute Code(s): I10 - Essential (primary) hypertension Qualifiers: Hypertension type: essential hypertension Qualified Code(s): I10 - Essential (primary) hypertension (5) Menopausal symptoms Current Visit: Yes Status: Chronic Code(s): N95.1 - Menopausal and female climacteric states (6) Depression Current Visit: Yes Status: Chronic Code(s): F32.9 - Major depressive disorder, single episode, unspecified Qualifiers: Depression Type: major depressive disorder Major depression recurrence: recurrent Active/Remission status: in full remission Qualified Code(s): F33.42 - Major depressive disorder, recurrent, in full remission - Assessment / Plan Additional Assessment/Plan Details: Plan: 1. Do serial enzymes and repeat EKG as necessary 2. Aspirin was given today, will continue at 81 mg daily 3. will consider beta kayla if necessary 4. if diagnosis becomes ACS or unstable angina, add therapeutic lovenox, otherwise will dose for DVT prophylaxis 5. We'll have the patient do a stress test [chemical stress test. I did discuss whether the patient felt she could do a treadmill but she did not think she could tolerate the exercise. We will not be able to get Tracer dye in until tomorrow possibly due to significant blizzard conditions.] 6. Continue proton pump inhibitor 5. Nitroglycerin when necessary for chest pain 6. Morphine if necessary via IV 7. Oxygen if necessary 8. We discussed whether or not the patient should remain in the hospital to do stress testing while here versus outpatient stress testing. I told her this very complex decision, and certainly if she leaves the hospital without a stress test to help interpret and risk stratify the patient, then we would certainly be very upset if she had an event outside the hospital. However, extended days in the hospital are also a consideration. The blizzard conditions are inhibiting her ability to get the stress test that we need done today as patient cannot do a treadmill. I recommended the patient stay and remained until we can do a Lexiscan stress test. 9. Blood sugars before meals and at bedtime, continue insulin. 10. May need to add a cholesterol agent.
[2018-10-19] MEDS ORDERED: GABAPENTIN 300 MG CAPSULE PO SCH (21:00)
[2018-10-20] MEDS: PANTOPRAZOLE 40 MG TABLET PO SCH (07:21)
[2018-10-20] MEDS: LISINOPRIL 20 MG TABLET PO SCH (08:24)
[2018-10-20] MEDS: FLUoxetine 20 MG CAPSULE PO SCH (08:25)
[2018-10-20] MEDS: Insulin Glargine SoloStar Inj 100 UNIT/ML INSULN.PEN SUBCUT SCH (08:25)
[2018-10-20 11:10] VITALS: BP 138/84; RESP 18; TEMP 97.2; O2SAT 91
[2018-10-20] MEDS ORDERED: DEXTROSE 50%-WATER SYRINGE 50 ML SYRINGE IVP PRN (11:59)
[2018-10-20] MEDS ORDERED: DEXTROSE 31 GM GEL PO PRN (11:59)
[2018-10-20] MEDS ORDERED: Insulin Sliding Scale Protocol SUBCUT PRN (11:59)
[2018-10-20] MEDS ORDERED: Glucagon Inj Vial 1 MG/ML VIAL IM PRN (11:59)
--- NOTE | 2018-10-20 13:38 | DCSUMMARY ---
Hospitalization Summary Admit Date: 10/19/2018 Discharge Date: 10/20/18 Primary Diagnosis:: chest pain, probably GERD Hospital Course: This is a pleasant 38-year-old female with diabetes mellitus, type II, hypercholesterolemia, hypertension, and GERD on proton pump inhibitor, and comes in complaining of chest pain with stabbing quality that she describes today, intermittent, and sometimes in her shoulder blade. It was initially radiating down the left arm but has stopped that. She was admitted, ruled out for myocardial infarction with negative cardiac enzymes, and we were hopeful of doing a Lexiscan chemical stress test without treadmill component. She did not believe she could exercise on a treadmill. Unfortunately, we had a severe blizzard, and we could not obtain radiotracer dyes for imaging. I told the patient that I would prefer to keep her here for a stress test inside the hospital, but she certainly had the option of discharging and doing an outpatient study if she would prefer. I described the risks and the benefits of doing a study inside the hospital versus doing an outpatient study, including the potentiality of cardiac events, even including , should she opt to do an outpatient study which may take some time to arrange. She felt the best thing for her situation would be to discharge from the hospital today and to do an outpatient study. Her chest pain has significantly improved, she has had intermittent sharp sternal chest pains with no radiation. We did discover that she is using her nonsteroidal anti-inflammatory drugs for pain and discomforts in the daily aspects of her job. She states is not uncommon for her to have some back pain with her job but she does state that's improving somewhat after her employer recently bought some new chairs. 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 Potassium and magnesium were replaced. I have a repeat metabolic panel to look at those. Her TSH is slightly increased, but I do not think with a normal free T4 that this is diagnostic, per se, of hypothyroidism. This appears to be subclinical hypothyroidism. Today, no shortness breath, no nausea or vomiting, sharp intermittent chest pains as described. No current chest pains. Cardiac enzymes negative, EKG negative for any ischemic findings. Assessment and Plan: 1. As per discharge assessments noted 2. Disposition: Patient is discharged home. 3. Condition on discharge, stable and improved. Risks assumed by patient as discussed above after risk and benefit discussion. 4. Diet: regular diet 5. Activities: resume normal activities 6. Follow-Up: 1. I recommended that the patient see her primary provider within 7 days of discharge the medical office building should call and help arrange the appointment. 7. Medications at the Time of Discharge: Home Medications Medication Instructions Recorded Confirmed Type pantoprazole 40 mg tablet,delayed 40 mg PO QDAY #90 tab 06/14/18 10/19/18 Rx release Lantus Solostar U-100 Insulin 100 42 unit SUBCUT QAM #3 ml NS 10/12/18 10/19/18 Rx unit/mL (3 mL) subcutaneous pen estradiol 1 mg tablet 1 mg PO QDAY #30 tab 10/12/18 10/19/18 Rx fluoxetine 20 mg capsule 20 mg PO DAILY #30 cap 10/12/18 10/19/18 Rx gabapentin 300 mg capsule 300 mg PO QHS #30 cap 10/12/18 10/19/18 Rx lisinopril 40 mg tablet 40 mg PO BID #60 tab 10/12/18 10/19/18 Rx Blood-Glucose Meter [Contour Next 0 unit .ROUTE .MEDSUPPLY 10/19/18 10/19/18 History Ez] Acetaminophen/Diphenhydramine 2 tab PO BEDTIME PRN 10/20/18 10/20/18 History [Tylenol Pm Ex-Strength Caplet] Aspirin Chewable Tab 81 mg PO ONCE (ED) tab 10/20/18 Rx This is an observation discharge. Exam - Vitals Vital Signs: Vital Signs Temperature 97.2 F Temperature Source Temporal Artery Scan Pulse Rate [Pulse Oximeter] 77 Pulse Rate 70 Respiratory Rate 18 Blood Pressure [Left Arm] 138/84 Blood Pressure 113/64 Pulse Ox 91 Oxygen Flow Rate 1 Oxygen Delivery Method Room Air Height 5 ft 8 in Weight 228 lb 9.6 oz - General General Appearance: No Acute Distress, Cooperative - Eye Eye Exam: POSITIVE: No Scleral Icterus - ENT ENT Exam: POSITIVE: Mucous Membranes Moist - Neck Neck Exam: JVP is not Raised - Respiratory Respiratory Exam: POSITIVE: Clear to Auscultation - Bilaterally, Breathing Non Labored - Cardiovascular Cardiovascular Exam: POSITIVE: RRR, No Murmur, No Clicks, No Gallops, No Rubs, No JVD - GI/Abdominal GI/Abdominal Exam: POSITIVE: Normal Bowel Sounds, Non Tender, Non Distended, Soft - Extremities Extremities Exam: POSITIVE: No Clubbing Present, No Edema Present, No Cyanosis Present - Neurological Neurological Exam: POSITIVE: Alert, Oriented x 3, No Facial Droop, Speech Intact / Clear, Moves All Extremities Equally Data Peritnent Studies: Laboratory Results 10/19/18 10/19/18 10/19/18 05:01 05:01 18:40 CK-MB (CK-2) 0.46 Cancelled Troponin I < 0.012 10/19/18 10/19/18 10/19/18 05:01 05:01 05:01 WBC 6.21 Hgb 14.8 Hct 41.1 Plt Count 192 PT 10.1 INR 0.99 D-Dimer 0.40 Sodium 138 Potassium 3.4 L Chloride 103 Carbon Dioxide 26 Anion Gap 9 BUN 12 Creatinine 0.6 Estimated GFR > 60 BUN/Creatinine Ratio 20.00 Glucose 242 H Calculated Osmolality 293.0 H Calcium 8.9 Magnesium 1.5 L Total Bilirubin 0.6 ALT 34 Alkaline Phosphatase 116 CK-MB (CK-2) Troponin I Handheld Troponin I C-Reactive Protein 1.4 H NT-Pro-B Natriuret Pep 25.2 Total Protein 7.1 Albumin 4.0 Globulin 3.0 Albumin/Globulin Ratio 1.30 Triglycerides Cholesterol LDL Cholesterol, Calc VLDL Cholesterol HDL Cholesterol Cholesterol/HDL Ratio TSH Free T4 10/19/18 10/19/18 10/19/18 05:01 05:01 05:01 WBC Hgb Hct Plt Count PT INR D-Dimer Sodium Potassium Chloride Carbon Dioxide Anion Gap BUN Creatinine Estimated GFR BUN/Creatinine Ratio Glucose Calculated Osmolality Calcium Magnesium Total Bilirubin ALT Alkaline Phosphatase CK-MB (CK-2) 0.46 Troponin I Handheld 0.000 Troponin I C-Reactive Protein NT-Pro-B Natriuret Pep Total Protein Albumin Globulin Albumin/Globulin Ratio Triglycerides 228 H Cholesterol 219 H LDL Cholesterol, Calc 128.400 VLDL Cholesterol 45 H HDL Cholesterol 45 Cholesterol/HDL Ratio 4.86 H TSH 5.62 H Free T4 1.01 10/19/18 10/19/18 12:06 18:40 WBC Hgb Hct Plt Count PT INR D-Dimer Sodium Potassium Chloride Carbon Dioxide Anion Gap BUN Creatinine Estimated GFR BUN/Creatinine Ratio Glucose Calculated Osmolality Calcium Magnesium Total Bilirubin ALT Alkaline Phosphatase CK-MB (CK-2) Troponin I Handheld Troponin I < 0.012 < 0.012 C-Reactive Protein NT-Pro-B Natriuret Pep Total Protein Albumin Globulin Albumin/Globulin Ratio Triglycerides Cholesterol LDL Cholesterol, Calc VLDL Cholesterol HDL Cholesterol Cholesterol/HDL Ratio TSH Free T4 Patient Problems - Patient Problem List (1) Chest pain Current Visit: Yes Status: Acute Code(s): R07.9 - Chest pain, unspecified Category: Medical (2) GERD (gastroesophageal reflux disease) Current Visit: Yes Status: Chronic Code(s): K21.9 - Gastro-esophageal reflux disease without esophagitis Qualifiers: Esophagitis presence: without esophagitis Qualified Code(s): K21.9 - Gastro-esophageal reflux disease without esophagitis Category: Medical (3) Diabetes mellitus Current Visit: Yes Status: Chronic Code(s): E11.9 - Type 2 diabetes mellitus without complications Qualifiers: Diabetes mellitus type: type 2 Diabetes mellitus prison insulin use: with prison use Diabetes mellitus complication status: with neurologic complications Diabetes mellitus complication detail: with autonomic neuropathy Qualified Code(s): E11.43 - Type 2 diabetes mellitus with diabetic autonomic (poly)neuropathy; Z79.4 - buttermaker continuous churn (current) use of insulin Category: Medical (4) Hypertension Current Visit: Yes Status: Acute Code(s): I10 - Essential (primary) hypertension Qualifiers: Hypertension type: essential hypertension Qualified Code(s): I10 - Essent ial (primary) hypertension Category: Medical (5) Menopausal symptoms Current Visit: Yes Status: Chronic Code(s): N95.1 - Menopausal and female climacteric states Category: Medical (6) Depression Current Visit: Yes Status: Chronic Code(s): F32.9 - Major depressive disorder, single episode, unspecified Qualifiers: Depression Type: major depressive disorder Major depression recurrence: recurrent Active/Remission status: in full remission Qualified Code(s): F33.42 - Major depressive disorder, recurrent, in full remission Category: Medical (7) Electrolyte abnormality Current Visit: Yes Status: Acute Code(s): E87.8 - Other disorders of electrolyte and fluid balance, not elsewhere classified Category: Medical
[2018-10-20 13:59] LABS: BLOOD UREA NITROGEN 11 mg/dL (7-22); BUN/CREATININE RATIO 15.71 (6-20)
[2018-10-20] MEDS ORDERED: Insulin Lispro Flexpen 300 UNIT/3 ML INSULN.PEN SUBCUT SCH (16:00)
== END 2018-10-20 14:58 | disposition home or self-care (01) ==
LOC: ER 04:53 → MED/SURG 04:53
PROVIDERS: ADMIT Family Medicine; ATTEND Family Medicine

== ENCOUNTER 2018-10-22 22:38 | Observation (INO) ==
[2018-10-22] MEDS ORDERED: Sodium Chloride 0.9% 1,000 ML PRIMARY IV ONE (22:53)
[2018-10-22] MEDS ORDERED: ASPIRIN 81 MG (BABY) CHEWABLE TABLET PO ONE (22:53)
--- NOTE | 2018-10-22 22:55 | PDOC ---
Chest Pain HPI - General Chief Complaint: Chest Pain Stated Complaint: Chest Pain Date Seen by Provider: 10/22/18 Time Seen by Provider: 22:50 Source: Patient Exam Limitations: POSITIVE: No limitations Treatment Prior to Arrival: REPORTS: Nitroglycerin Nurse's Notes Reviewed & Considered: Yes - History of Present Illness Initial Comments: The patient is a 48-year-old female who presents to the emergency department with chest pain. She states that she was at work sitting down when she had onset of pain initially in the center of her chest. This then spread through to her back and in a band around the lower aspect of her chest. She states that the pain became quite intense and she was rating her pain a 10 out of 10. She was hospitalized 3 days ago with chest pain. Her EKG was unremarkable and she had serial enzymes which were negative. She was going to have a nuclear stress test however because of whether they were unable to obtain the isotope and she elected to schedule this as an outpatient. She is scheduled for a stress test on of this week. She does have a history of diabetes as well as hypertension and hyperlipidemia. She does not have any tobacco use and denies significant family history of heart disease. She states that she had been prescribed nitroglycerin when she was discharged from the hospital and did take a dose prior to arrival here. She states that her pain is currently significantly improved and is less than 1 out of 10. She states at the time wh en she was experiencing pain she felt short of breath and somewhat sick to her stomach. - Patient Home Medications Home Medications: Home Medications pantoprazole 40 mg tablet,delayed release 40 mg PO QDAY #90 tab 06/14/18 Lantus Solostar U-100 Insulin 100 unit/mL (3 mL) subcutaneous pen 42 unit SUBCUT QAM #3 ml NS 10/12/18 estradiol 1 mg tablet 1 mg PO QDAY #30 tab 10/12/18 fluoxetine 20 mg capsule 20 mg PO DAILY #30 cap 10/12/18 gabapentin 300 mg capsule 300 mg PO QHS #30 cap 10/12/18 lisinopril 40 mg tablet 40 mg PO BID #60 tab 10/12/18 Blood-Glucose Meter [Contour Next Ez] 0 unit .ROUTE .MEDSUPPLY 10/19/18 Acetaminophen/Diphenhydramine [Tylenol Pm Ex-Strength Caplet] 2 tab PO BEDTIME PRN 10/20/18 Aspirin Chewable Tab 81 mg PO ONCE (ED) tab 10/20/18 - Patient Allergies Allergies/Adverse Reactions: Allergies Allergy/AdvReac Type Severity Reaction Status Date / Time oxycodone HCl [From Percocet] Allergy Severe SHORTNESS Verified 10/22/18 22:41 OF BREATH codeine Allergy HALLUCINATI Verified 10/22/18 22:41 ONS venom-honey bee Allergy Anaphylaxis Verified 10/22/18 22:41 [bee venom (honey bee)] Past Medical History - heen HEENT History: Other (please comment) Additional HEENT History: TONSILLECTOMY Cardiovascular History: Hypertension, Hyperlipidemia Additional Cardiovasular History: NORMAL ECHO AND STRESS TEST 2013 Respiratory History: Denies History Gastrointestinal History: GERD, Gallbladder Disease, Hiatal Hernia Additional Gastrointestinal History: Removed gallbladder Genitourinary History: Kidney Stones Additional Genitourinary History: 2011 Endocrine History: Type 2 Diabetes (diet), Type 2 Diabetes (insulin) Musculoskeletal History: Denies History Prosthesis or Implant: No Neurological History: Denies History Blood Disorders: Denies History Psychiatric History: Denies History History of Sexually Transmitted Diseases: No Female Reproductive History: Hysterectomy Obstetrical History: Denies History Cancer History: Denies History In Past Year Been Physically Harmed or Verbally Threatened: No History of MDRO: No History of Other Communicable Diseases: No Tobacco Use: Never Smoker Alcohol Use: Rarely In the Past 12 Months, Have Used or Abuse Any Substance: None Previous Surgical History: Yes Type / Date of Surgery: EGD/ LITHOTRIPSY, ALSO STENTS, ETC/ LEFT ANKLE MANIPULATION/ TONSILLECTOMY/ TUBAL /SEAN/HYSTERECTOMY WITH BSO Anesthesia Reactions: No (PONV) Malignant Hyperthermia: No Significant Family History: Cancer, Diabetes Additional Family History: Sister- type 1. Father passed of lung cancer. mother had kidney Past Medical History Reviewed: Reviewed - No Changes ROS - Limitations ROS Limitations: No Limitations Constitution: DENIES: Fever Cardiovascular: REPORTS: Chest Pain. DENIES: Heart Palpitations, Edema Respiratory: REPORTS: Shortness Of Breath. DENIES: Hurts To Breathe Neurological: REPORTS: Denies Neuro Symptoms Gastrointestinal: REPORTS: Nausea. DENIES: Abdominal Pain, Vomitting Musculoskeletal: DENIES: Calf Pain, Lower Extremity Swelling Eyes: REPORTS: Denies Symptoms ENT: REPORTS: Denies Symptoms Skin: DENIES: Rash Chest Pain PE - General Appearance General Appearance: REPORTS: Alert, Cooperative, No Acute Distress - HEENT HEENT: POSITIVE: Head Inspection Nml, Eyes Inspection Nml, Ears Inspection Nml, Nose Inspection Nml, Pharynx Inspect. 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 Lab Results Reviewed by Me: Yes CBC and BMP: 10/22/18 23:13 10/22/18 23:15 Lab Results:: Laboratory Results 10/22/18 10/22/18 10/22/18 23:13 23:15 23:15 WBC 6.42 RBC 5.00 Hgb 15.9 Hct 44.4 MCV 88.8 MCH 31.8 H MCHC 35.8 RDW Std Deviation 41.3 RDW Coeff of Harsha 12.9 Plt Count 112 L MPV 10.9 Immature Gran % (Auto) 0.3 Neut % (Auto) 58.5 Lymph % (Auto) 34.7 [place] % (Auto) 4.0 L Eos % (Auto) 1.9 Baso % (Auto) 0.6 Immature Gran # (Auto) 0.02 Neut # (Auto) 3.75 Lymph # (Auto) 2.23 [place] # (Auto) 0.26 L Eos # (Auto) 0.12 Baso # (Auto) 0.04 WBC Morphology Comment Normal morphology Plt Morphology Comment Normal morphology RBC Morph Comment Normal morphology D-Dimer 0.51 Sodium 139 Potassium 4.1 Chloride 102 Carbon Dioxide 26 Anion Gap 11 BUN 16 Creatinine 0.7 Estimated GFR > 60 BUN/Creatinine Ratio 22.85 H Glucose 234 H Calculated Osmolality 296.0 H Calcium 9.6 Magnesium 1.4 L Total Bilirubin 0.9 AST 59 H ALT 44 Alkaline Phosphatase 113 CK-MB (CK-2) Troponin I C-Reactive Protein 2.0 H NT-Pro-B Natriuret Pep 51.8 Total Protein 7.2 Albumin 4.3 Globulin 2.9 Albumin/Globulin Ratio 1.40 Amylase 44 Lipase 126 10/22/18 23:15 WBC RBC Hgb Hct MCV MCH MCHC RDW Std Deviation RDW Coeff of Harsha Plt Count MPV Immature Gran % (Auto) Neut % (Auto) Lymph % (Auto) [place] % (Auto) Eos % (Auto) Baso % (Auto) Immature Gran # (Auto) Neut # (Auto) Lymph # (Auto) [place] # (Auto) Eos # (Auto) Baso # (Auto) WBC Morphology Comment Plt Morphology Comment RBC Morph Comment D-Dimer Sodium Potassium Chloride Carbon Dioxide Anion Gap BUN Creatinine Estimated GFR BUN/Creatinine Ratio Glucose Calculated Osmolality Calcium Magnesium Total Bilirubin AST ALT Alkaline Phosphatase CK-MB (CK-2) 0.35 Troponin I < 0.012 C-Reactive Protein NT-Pro-B Natriuret Pep Total Protein Albumin Globulin Albumin/Globulin Ratio Amylase Lipase EKG Interpreted/Reviewed By Me:: Yes EKG Interpretation:: POSITIVE: Normal Sinus Rhythm, Normal Rate, Normal QRS, Normal ST/T - Patient's Progress MDM / ED Course: The patient's pain had basically resolved by the time I evaluated the patient. Her initial EKG shows normal sinus rhythm with no acute ST segment or T-wave changes. She was given aspirin per chest pain protocol. Her chest x-ray shows no acute cardiopulmonary findings per radiologist. Blood work reveals a normal d-dimer, normal troponin. Her magnesium is slightly low at 1.4. She was given 1 g of IV magnesium. Findings were discussed with the patient. The patient does have multiple risk factors for coronary artery disease. She is currently scheduled to have a nuclear stress test as an outpatient. Options for being admitted for further testing now or pursuing things as an outpatient were discussed with the patient. She was most comfortable being admitted at this time for further evaluation and stress testing which I would also recommend. I did discuss the patient with Dr. Leija and he has agreed to admit the patient. - Consult Counseled: POSITIVE: Patient, Family, RE: Lab Results, RE: Radiology Results, RE: DX Patient Care Time - Estimated PCT Patient Care Time (In Minutes): 30 Vital Signs - Recent Vital Signs Vital Signs: Vital Signs (Last 8 hours) Temp Pulse Pulse Resp BP Pulse Ox 10/22/18 22:48 98 10/22/18 22:45 96.8 F 102 H 20 154/109 90 - VS Reviewed Vital Signs Reviewed: Yes Discharge Clinical Impression: Diabetes mellitus, Hypertension, Chest pain, Hypomagnesemia Discharge Disposition: Admit to Observation Condition: Fair Follow Up With: MAYANK MELISSA [Primary Care Provider] -
--- NOTE | 2018-10-22 22:55 | EKG ---
[address] [address] Measurements Intervals [place] Rate: 98 P: 70 DE: 163 QRS: 147 QRSD: 67 T: 57 QT: 365 QTc: 421 Interpretive Statements SINUS RHYTHM RIGHT VENTRICULAR HYPERTROPHY Compared to ECG 10/19/2018 04:58:41 Right ventricular hypertrophy now present Electronically Signed On 10-23-18 12:09:26 MDT by Niraj West [email or web address]
[2018-10-22 23:19] LABS: BASOPHILS # (AUTO) 0.04 10*3/UL; BASOPHILS % (AUTO) 0.6 % (0-1); EOSINOPHILS # (AUTO) 0.12 10*3/UL; EOSINOPHILS % (AUTO) 1.9 % (0-8); Hematocrit [HCT] 44.4 % (37.0-47.0); Hemoglobin [HGB] 15.9 g/dL (12.0-16.0); LYMPHOCYTES # (AUTO) 2.23 10*3/uL; MEAN CORPUSCULAR HEMOGLOBIN 31.8 PG (27-31); MEAN CORPUSCULAR HGB CONC 35.8 g/dL (33-37); MEAN CORPUSCULAR VOLUME 88.8 FL (81-99); MEAN PLATELET VOLUME 10.9 FL (7.4-12.2); MONOCYTES # (AUTO) 0.26 10*3/UL (0.3-0.8); NEUTROPHILS # (AUTO) 3.75 10*3/UL; NEUTROPHILS % (AUTO) 58.5 % (50-80)
[2018-10-22 23:21] LABS: PLATELET MORPHOLOGY COMMENT NORMAL MORPHOLOGY (NORM); RBC MORPHOLOGY COMMENT NORMAL MORPHOLOGY (NORM); WBC MORPHOLOGY COMMENT NORMAL MORPHOLOGY (NORM)
[2018-10-22 23:35] LABS: BLOOD UREA NITROGEN 16 mg/dL (7-22); BUN/CREATININE RATIO 22.85 (6-20); LIPASE 126 IU/L (23-300); SERUM ALBUMIN 4.3 g/dL (3.5-4.8)
--- NOTE | 2018-10-22 23:43 | DI ---
EXAM: XR Chest, 1 View CLINICAL HISTORY: ITS.REASON Chest Pain Physician Notes: Tech Comments: TECHNIQUE: Frontal view of the chest. COMPARISON: No relevant prior studies available. FINDINGS: Lungs: Unremarkable. No consolidation. Pleural space: Unremarkable. No pneumothorax. Heart: No pneumomediastinum. Mediastinum: Unremarkable. Bones/joints: No definite fracture. IMPRESSION: No acute findings.
[2018-10-22] MEDS ORDERED: Magnesium Sulfate 1gm (Premix) 1 GM/100 ML BAG IV ONE (23:46)
[2018-10-23] MEDS ORDERED: NITROGLYCERIN 0.4 MG SL TAB (BOTTLE OF 3) SL PRN (00:14)
[2018-10-23] MEDS ORDERED: LIDOCAINE W/ SODIUM BICARB 0.5 ML SYR SUBD PRN (00:14)
[2018-10-23] MEDS ORDERED: CALCIUM CARBONATE 500 MG (TUMS) CHEWABLE TABLET PO PRN (00:14)
[2018-10-23] MEDS ORDERED: MORPHINE SULFATE 2 MG/1 ML IV PRN (00:14)
[2018-10-23] MEDS ORDERED: Magnesium Sulfate 2gm (Premix) 2 GM/50 ML BAG IV ONE (00:14)
[2018-10-23] MEDS ORDERED: ASPIRIN 81 MG (BABY) CHEWABLE TABLET PO SCH (00:15)
[2018-10-23] MEDS: HEPARIN 5000 UNIT/1 ML SUBCUT SCH ×4 (00:45→23:59)
[2018-10-23] MEDS ORDERED: GABAPENTIN 300 MG CAPSULE PO ONE (01:07)
[2018-10-23] MEDS: ACETAMINOPHEN 500 MG TABLET PO PRN ×2 (01:19→20:11)
[2018-10-23] MEDS: diphenhydrAMINE 25 MG CAPSULE PO PRN ×2 (01:19→20:12)
[2018-10-23 02:37] LABS: AMPHETAMINE SCREEN NEGATIVE (NEG); CANNABINOID SCREEN,URINE NEGATIVE (NEG); COCAINE SCREEN NEGATIVE (NEG); METHADONE URINE SCREEN NEGATIVE (NEG); METHAMPHETAMINES SCREEN,URINE NEGATIVE (NEG); OPIATE SCREEN,URINE NEGATIVE (NEG); URINE SAMPLE TYPE CLEAN CATCH URINE; URINE SPECIFIC GRAVITY - MAN 1.025
[2018-10-23] MEDS ORDERED: ESTRADIOL 1 MG TABLET PO SCH ×2 (09:00→21:00)
[2018-10-23] MEDS ORDERED: FLUoxetine 20 MG CAPSULE PO SCH ×2 (09:00→21:00)
[2018-10-23] MEDS: PANTOPRAZOLE 40 MG TABLET PO SCH (09:07)
[2018-10-23] MEDS: Insulin Glargine SoloStar Inj 100 UNIT/ML INSULN.PEN SUBCUT SCH (09:07)
[2018-10-23] MEDS: LISINOPRIL 20 MG TABLET PO SCH ×2 (09:40→20:08)
[2018-10-23] MEDS ORDERED: Insulin Glargine SoloStar Inj 100 UNIT/ML INSULN.PEN SUBCUT ONE (09:51)
--- NOTE | 2018-10-23 10:06 | PDOC ---
HPI - History of Present Illness History of Present Illness: This very nice 48-year-old female who was seen in the emergency room for chest pain. This happened while she was sitting at work she said that this radiated t o her jaw and left arm had some shortness of breath and diaphoresis. Pain was 10 out of 10 when she arrived in the ER she was given nitroglycerin with relief of the pain. She was hospitalized 3 days ago and was scheduled to get a nuclear stress test as an outpatient but was not done because unable to obtain isotope secondary to the weather. Patient's troponins were negative and she is chest pain-free now. Past Medical History Medical History: 1. Diabetes mellitus type II, poorly controlled. 2. Hypertension. 3. Hypercholesterolemia with hypertriglyceridemia. 4. GERD. 5. Postsurgical menopause with hormone replacement therapy. 6. Depression Surgical History: 1. FREDY with BSO. 2. Cholecystectomy. 3. EGD with GERD. 4. Tonsillectomy. 5. History of tubal ligation. 6. Kidney stones Pertinent Family History: Patient's mother had atrial fibrillation. Past Social History: Does not smoke. Does not drink alcohol. 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 She has children, 4, all described as healthy. Tobacco Use: Never Smoker In the Past 12 Months, Have Used or Abuse Any of the Following Substance: None Medication / Allergies Home Medications: Home Medications Medication Instructions Recorded Confirmed Type pantoprazole 40 mg tablet,delayed 40 mg PO QDAY #90 tab 06/14/18 10/22/18 Rx release Lantus Solostar U-100 Insulin 100 42 unit SUBCUT QAM #3 ml NS 10/12/18 10/22/18 Rx unit/mL (3 mL) subcutaneous pen estradiol 1 mg tablet 1 mg PO QDAY #30 tab 10/12/18 10/22/18 Rx fluoxetine 20 mg capsule 20 mg PO DAILY #30 cap 10/12/18 10/22/18 Rx gabapentin 300 mg capsule 300 mg PO QHS #30 cap 10/12/18 10/22/18 Rx lisinopril 40 mg tablet 40 mg PO BID #60 tab 10/12/18 10/22/18 Rx Blood-Glucose Meter [Contour Next 0 unit .ROUTE .MEDSUPPLY 10/19/18 10/22/18 History Ez] Acetaminophen/Diphenhydramine 2 tab PO BEDTIME PRN 10/20/18 10/22/18 History [Tylenol Pm Ex-Strength Caplet] Aspirin Chewable Tab 81 mg PO ONCE (ED) tab 10/20/18 10/22/18 Rx Allergies/Adverse Reactions: Allergies Allergy/AdvReac Type Severity Reaction Status Date / Time oxycodone HCl [From Percocet] Allergy Severe SHORTNESS Verified 10/22/18 22:41 OF BREATH codeine Allergy HALLUCINATI Verified 10/22/18 22:41 ONS venom-honey bee Allergy Anaphylaxis Verified 10/22/18 22:41 [bee venom (honey bee)] Review of Systems - Review of Systems All Systems: Reviewed & No Additional Complaints Except as Stated - Cardiovascular Cardiovascular: REPORTS: Chest Pain. DENIES: Syncope, Palpitations - Gastrointestinal Gastrointestinal / Abdominal: DENIES: Negative System Review, Nausea, Vomiting, Diarrhea, Constipation, Abdominal Pain, Bloody Stool, Poor Appetite, Heartburn, Regurgitation, Bloating, Lactose Intolerance, Melena, Bright Red Blood per Rectum, Other, See HPI - Genitourinary Genitourinary: DENIES: Negative System Review, Pain, Burning, Hematuria, Incontinence, Urgency, Hesitant Stream, Decreased Stream, Nocutria, Discharge, Sexual Dysfunction, Other, See HPI Exam - Vitals Vital Signs: Vital Signs Temperature 97.1 F Temperature Source Temporal Artery Scan Pulse Rate [Pulse Oximeter] 87 Pulse Rate 77 Respiratory Rate 16 Blood Pressure [Left Arm] 127/92 Blood Pressure 140/90 Pulse Ox 93 Oxygen Delivery Method Room Air Height 5 ft 8 in Weight 229 lb 9.6 oz Results - Labs CBC and BMP: 10/22/18 23:13 10/22/18 23:15 Assessment and Plan - Patient Problems (1) Chest pain Current Visit: Yes Status: Acute Comment: Troponins are negative Lexiscan stress test was ordered she will be ge tting her first the resting part of the test today and stress part tomorrow. She will receive half the dose of Lantus since she is nothing by mouth and continue other usual meds from the medical issues which are now stable discuss was discussed with nursing and the patient Code(s): R07.9 - Chest pain, unspecified
[2018-10-23] MEDS ORDERED: ESTRADIOL 1 MG PO SCH (21:00)
[2018-10-23] MEDS ORDERED: GABAPENTIN 300 MG CAPSULE PO SCH (21:00)
[2018-10-24 04:48] LABS: BLOOD UREA NITROGEN 12 mg/dL (7-22); CHOL/HDL RATIO 4.65 RATIO (0-4.0); SERUM ALBUMIN 3.4 g/dL (3.5-4.8); SERUM CHOLESTEROL 191 mg/dL (120-200)
--- NOTE | 2018-10-24 08:37 | STRESSTEST ---
[facility] [place] Interpretive Statements 48 yo female with chest pain and neg trops. no acute changes on this portion will await pics [email or web address]
[2018-10-24] MEDS: Insulin Glargine SoloStar Inj 100 UNIT/ML INSULN.PEN SUBCUT SCH (08:58)
--- NOTE | 2018-10-24 09:18 | DCSUMMARY ---
Hospitalization Summary Hospital Course: Final Discharge Diagnosis: Current Visit Problems Problem Status Onset Code Chest pain Acute R07.9 Hypomagnesemia Acute E83.42 Diabetes mellitus Chronic E11.9 Hypertension Acute I10 Diagnostic Data, Laboratory Data, and Procedures of Signifigance: CBC and BMP 10/22/18 23:13 10/24/18 04:16 History and Physical pertinent to Admission: Course of Hospitalization: This very nice 48-year-old female who comes in with chest pain patient was rule out with negative troponins had both portions of her Lexiscan stress test there was a reversible defect in the LAD area which Dr. Kt Anand thought it was artifact. I did call Dr. David cardiology I read him the report he also tho ught that this was most likely an artifact and recommended an outpatient consult with one of his colleagues. This was done for this and the patient will see Dr. David. I spent 45 minutes explaining to the patient the results of the stress test and what it meant also gave her some guidance with nutrition as well. Patient will be discharged home in stable and improved condition she is already on Protonix nurse in the room before conversation Maddy On the date of discharge, the patient was examined: Gen.: No acute distress, alert, nontoxic Heart: Regular rate and rhythm, no murmurs, clicks, gallops, or rubs Lungs: Clear to auscultation bilaterally, breathing is nonlabored Abdomen/GI: Normal tones on auscultation, soft, nontender, nondistended Musculoskeletal/extremities: No clubbing, cyanosis, or edema Vitals reviewed and are listed below Vital Signs (24 hrs) 10/23/18 11:00 10/23/18 12:59 10/23/18 15:00 Temperature 98.2 F Pulse Rate 80 82 Pulse Rate [Pulse Oximeter] 90 Respiratory Rate 12 Blood Pressure [Left Arm] Blood Pressure [Right Arm] 117/77 Pulse Ox 93 92 94 10/23/18 16:25 10/23/18 18:43 10/23/18 19:00 Temperature 98.3 F Pulse Rate 80 Pulse Rate [Pulse Oximeter] 73 73 Respiratory Rate 12 Blood Pressure [Left Arm] Blood Pressure [Right Arm] 129/87 Pulse Ox 93 95 10/23/18 20:20 10/23/18 23:00 10/24/18 00:08 Temperature 97.5 F 96.5 F L Pulse Rate 85 Pulse Rate [Pulse Oximeter] 79 83 Respiratory Rate 18 14 Blood Pressure [Left Arm] 156/96 Blood Pressure [Right Arm] 145/85 Pulse Ox 95 94 10/24/18 03:00 10/24/18 04:36 10/24/18 06:42 Temperature 97.1 F Pulse Rate 68 71 Pulse Rate [Pulse Oximeter] 71 Respiratory Rate 16 Blood Pressure [Left Arm] Blood Pressure [Right Arm] 107/62 Pulse Ox 90 94 93 10/24/18 07:00 Temperature 97.1 F Pulse Rate Pulse Rate [Pulse Oximeter] 79 Respiratory Rate 17 Blood Pressure [Left Arm] Blood Pressure [Right Arm] 125/76 Pulse Ox 91 Assessment and Plan: 1. As per discharge assessments above 2. Disposition: Home 3. Condition on discharge, stable and improved. 4. Diet: regular diet 5. Activities: resume normal activities 6. Follow-Up: 1. PCP 2. Follow-up with Dr. Frances on which will determine when she will be released for work 7. Medications at the Time of Discharge: Home Medications Medication Instructions Recorded Confirmed Type pantoprazole 40 mg tablet,delayed 40 mg PO QDAY #90 tab 06/14/18 10/22/18 Rx release Lantus Solostar U-100 Insulin 100 42 unit SUBCUT QAM #3 ml NS 10/12/18 10/22/18 Rx unit/mL (3 mL) subcutaneous pen estradiol 1 mg tablet 1 mg PO QDAY #30 tab 10/12/18 10/22/18 Rx fluoxetine 20 mg capsule 20 mg PO DAILY #30 cap 10/12/18 10/22/18 Rx gabapentin 300 mg capsule 300 mg PO QHS #30 cap 10/12/18 10/22/18 Rx lisinopril 40 mg tablet 40 mg PO BID #60 tab 10/12/18 10/22/18 Rx Blood-Glucose Meter [Contour Next 0 unit .ROUTE .MEDSUPPLY 10/19/18 10/22/18 History Ez] Acetaminophen/Diphenhydramine 2 tab PO BEDTIME PRN 10/20/18 10/22/18 History [Tylenol Pm Ex-Strength Caplet] Aspirin Chewable Tab 81 mg PO ONCE (ED) tab 10/20/18 10/22/18 Rx 8. Time, care, counseling and coordination of care for this discharge is greater than 30 minutes. Exam - Vitals Vital Signs: Vital Signs Temperature 97.1 F Temperature Source Temporal Artery Scan Pulse Rate [Pulse Oximeter] 79 Pulse Rate 71 Respiratory Rate 17 Blood Pressure [Right Arm] 125/76 Blood Pressure [Left Arm] 156/96 Blood Pressure 140/90 Pulse Ox 91 Oxygen Delivery Method Room Air Height 5 ft 8 in Weight 224 lb 12.8 oz Patient Problems - Patient Problem List (1) Chest pain Current Visit: Yes Status: Acute Code(s): R07.9 - Chest pain, unspecified Category: Medical
[2018-10-24] MEDS: PANTOPRAZOLE 40 MG TABLET PO SCH (09:22)
[2018-10-24] MEDS: HEPARIN 5000 UNIT/1 ML SUBCUT SCH ×2 (09:26→16:26)
[2018-10-24] MEDS: LISINOPRIL 20 MG TABLET PO SCH (10:39)
[2018-10-24 11:05] VITALS: BP 123/78; RESP 18; TEMP 97.2
--- NOTE | 2018-10-24 12:47 | DI ---
2 DAY LEXISCAN STRESS & REST MYOCARDIAL PERFUSION SCANS, 10/23/2018 12:14 AM : Clinical History: Chest pain Previous Exam: None at this facility. The patient was stressed by Dr. Jim Leija The standard Lexiscan protocol was used. Please see the Doctor's report. At the designated time, 34.7 mCi of 99Tc-sestimibi was injected IV. Stress gated tomograms were acquired within one hour of the i njection. For the resting scans, 35.5 mCi was injected IV and resting gated tomograms were acquired in similar fashion. Stress scans were performed on 10/23/18; the resting scans were performed on 10/24/18. Quantitative and qualitative analyses were performed. Quantitative analysis was performed with the [facility] [id number] protocols. Very low dose limited CT scans of the chest are o btained through the level of the heart for attenuation correction of the gated stress and rest cardia c SPECT data. Non-attenuated and attenuated scans were processed for review, and the attenuated scans were used for final interpretation of this study. Review of the raw data images and food quality tester files indicate that these series of examinations ar e of excellent quality. Stress and rest left ventricular chamber sizes are normal. Stress and rest LV EF are 82 % and 96 %, respectively. There is a very small mild intensity reversible defect involving the anterior apex. There is a fixed defect involving a medium-sized area in the anterior apex. There is normal wall motion and normal ejection fraction. Transient ischemic dilatation ratio is 1.3, with a normal range up to 1.22 for patients stressed with the Jude protocol and up to 1.33 for patients stressed with the Lexiscan protocol. The very low dose CT scans through the level of the heart show no coronary artery calcifications. The re is no adenopathy or evidence of lung nodules. Reading: There is a small mild intensity reversible defect involving the anterior apex in the midst of a sligh tly larger fixed defect. This is believed to represent artifact. This is in the territory of the left anterior descending artery. Normal wall motion and normal ejection fraction.
[2018-10-24 15:08] VITALS: O2SAT 94
== END 2018-10-24 16:57 | disposition home or self-care (01) ==
LOC: ER 22:38 → MED/SURG 22:38
PROVIDERS: ADMIT Internal Medicine; ATTEND Internal Medicine